=== PATIENT | female | born 1990 | race Caucasian/White ===

== ENCOUNTER → 2018-01-26 | Outpatient (CLI) | payer OTHER ==
--- NOTE | 2018-01-26 14:11 | KCIC ---
EXAM: Obstetrics sonogram. HISTORY: Uterine size and dates discrepancy. TECHNIQUE: Sonographic imaging of the pelvis was performed. COMPARISON: None. FINDINGS: There is a single intrauterine fetus in cephalic presentation with a heart rate of heart rate of 144 beats per minute. There is a posterior placenta without evidence of placenta previa. The cervix is closed and measures 3.3 cm in length. There is body motion. There is a three-vessel umbilical cord with normal insertion. The stomach, kidneys, bladder, spine, brain and heart are unremarkable. The biparietal diameter is 4.34 cm, corresponding with 19 weeks and 1 day. The head circumference is 16.25 cm, corresponding with 19 weeks and 0 days. The abdominal circumference is 13.08 cm, corresponding with 18 weeks and 4 days. The femoral length is 2.80 cm, corresponding with 18 weeks and 4 days. The estimated gestational age patient combined ultrasound measurements is 18 weeks and 6 days. The estimated weight is 250 g. The estimated due date is 06/23/2018. The amniotic fluid index is normal at 15.4 cm. IMPRESSION: Single intrauterine fetus with an estimated gestational age based on ultrasound measurements of 18 weeks and 6 days and heart rate of heart rate of 144 bpm. The estimated gestational age based on LMP is 18 weeks and 3 days. Electronically signed by: Bronwyn Mock MD (01/26/2018 2:07 PM) [place] [id number]
== END | disposition home or self-care (01) ==
LOC: KCIC US 11:01
PROVIDERS: ATTEND Obstetrics & Gynecology
DX: Z34.82 Encounter for supervision of other normal pregnancy, second trimester (principal); Z3A.18 18 weeks gestation of pregnancy
CPT/HCPCS: 76805

== ENCOUNTER → 2019-06-29 | Outpatient (CLI) | payer OTHER ==
[2019-06-29 10:19] LABS: BASO % 1 % (0-3); EOS # 0.6 x10^3/uL (0.0-0.7); EOS % 7 % (0-3); HEMATOCRIT 40.4 % (36.0-47.0); HEMOGLOBIN 13.8 g/dL (12.0-15.5); LYMPH # 2.1 x10^3/uL (1.0-4.8); LYMPH % 27 % (24-48); MEAN CORPUSCULAR HEMOGLOBIN 29 pg (25-35); MEAN CORPUSCULAR HGB CONC 34 g/dL (31-37); MEAN CORPUSCULAR VOLUME 85 fL (79-100); MONO # 0.7 x10^3/uL (0.0-1.1); MONO % 9 % (0-9); NEUT # 4.3 x10^3/uL (1.8-7.7); NEUT % 56 % (31-73); PLATELET COUNT 273 x10^3/uL (140-400); RED BLOOD COUNT 4.77 x10^6/uL (3.50-5.40); RED CELL DISTRIBUTION WIDTH 13.2 % (11.5-14.5); WHITE BLOOD COUNT 7.7 x10^3/uL (4.0-11.0)
[2019-06-29 10:29] LABS: ALBUMIN 3.4 g/dL (3.4-5.0); ALBUMIN/GLOBULIN RATIO 0.8 (1.0-1.7); CREATININE 0.5 mg/dL (0.6-1.0); POTASSIUM 3.7 mmol/L (3.5-5.1); TOTAL BILIRUBIN 0.5 mg/dL (0.2-1.0); TOTAL PROTEIN 7.7 g/dL (6.4-8.2)
[2019-06-29 10:34] LABS: CHOLESTEROL/HDL RATIO 4.4
== END | disposition home or self-care (01) ==
LOC: LAB 09:30
PROVIDERS: ATTEND Family Medicine
DX: Z13.220 Encounter for screening for lipoid disorders (principal); R53.83 Other fatigue
CPT/HCPCS: 36415; 80053; 80061; 84443; 85025

== ENCOUNTER → 2019-11-29 | Outpatient (CLI) | payer OTHER ==
[2019-11-29 08:57] LABS: BASO % 0 % (0-3); EOS # 0.2 x10^3/uL (0.0-0.7); EOS % 2 % (0-3); HEMATOCRIT 39.1 % (36.0-47.0); HEMOGLOBIN 13.3 g/dL (12.0-15.5); LYMPH # 1.6 x10^3/uL (1.0-4.8); LYMPH % 18 % (24-48); MEAN CORPUSCULAR HEMOGLOBIN 29 pg (25-35); MEAN CORPUSCULAR HGB CONC 34 g/dL (31-37); MEAN CORPUSCULAR VOLUME 86 fL (79-100); MONO # 0.4 x10^3/uL (0.0-1.1); MONO % 4 % (0-9); NEUT # 6.9 x10^3/uL (1.8-7.7); NEUT % 76 % (31-73); PLATELET COUNT 276 x10^3/uL (140-400); RED BLOOD COUNT 4.56 x10^6/uL (3.50-5.40); RED CELL DISTRIBUTION WIDTH 13.4 % (11.5-14.5); WHITE BLOOD COUNT 9.1 x10^3/uL (4.0-11.0)
[2019-11-29 09:15] LABS: ALBUMIN 3.2 g/dL (3.4-5.0); ALBUMIN/GLOBULIN RATIO 0.7 (1.0-1.7); CALCIUM 8.6 mg/dL (8.5-10.1); CREATININE 0.8 mg/dL (0.6-1.0); POTASSIUM 3.4 mmol/L (3.5-5.1); TOTAL BILIRUBIN 0.6 mg/dL (0.2-1.0); TOTAL PROTEIN 7.7 g/dL (6.4-8.2)
== END | disposition home or self-care (01) ==
LOC: LAB 08:21
PROVIDERS: ATTEND Obstetrics & Gynecology
DX: Z32.01 Encounter for pregnancy test, result positive (principal); O34.219 Maternal care for unspecified type scar from previous cesarean delivery; O21.0 Mild hyperemesis gravidarum; Z3A.00 Weeks of gestation of pregnancy not specified
CPT/HCPCS: 80053; 85025; 86592; 86703; 86706; 86762; 86850; 86900; 86901

== ENCOUNTER → 2020-02-15 | Outpatient (CLI) | payer OTHER ==
--- NOTE | 2020-02-15 15:11 | RAD ---
Examination: PREG MORE THAN OR EQ TO 14 WKS History: Uterine size and dates discrepancy Comparison/Correlation: 01/26/2018 ultrasound exam Findings: OB ultrasound exam was performed. Single intrauterine gestation is present. Placenta is at the anterior wall. Variable lie noted. movement and cardiac activity with 158 bpm heart rate noted. breathing noted. anatomy identified: Four-chamber heart, three-vessel cord with insertion, fluid in the urinary bladder, stomach, bilateral kidneys, spine, and brain are identified. Amniotic fluid index is normal measuring 10.5 cm. Head circumference is 16.3 cm corresponding to 19 week 1 day Abdominal circumference is 13.38 cm corresponding 18 weeks 6 days Femur length is 2.94 cm corresponding to 19 weeks 0 days Head circumference to abdominal circumference ratio is 1.22 Estimated weight is 268 g Average ultrasound age 19 weeks 1 day Ultrasound EDC is 07/10/2020 Maternal cervical length is 3.52 cm. Impression: Single living intrauterine gestation. Average ultrasound age 19 weeks 1 day is 2 days greater than clinical age. No suspicious process. Room Electronically signed by: Jaison Card MD (02/15/2020 3:07 PM) [id number]
== END | disposition home or self-care (01) ==
LOC: US 10:58
PROVIDERS: ATTEND Obstetrics & Gynecology
DX: O26.842 Uterine size-date discrepancy, second trimester (principal); Z3A.19 19 weeks gestation of pregnancy
CPT/HCPCS: 76805